=== PATIENT | male | born 1990 | race Caucasian/White ===

== ENCOUNTER 2018-07-04 15:39 | Emergency (ER) | payer OTHER ==
[~2018-07-04] VITALS: Ht 177.8 cm; Wt 72.6 kg
== END 2018-07-04 18:08 | disposition home or self-care (01) ==
LOC: ER 15:39
DX: S61.211A Laceration without foreign body of left index finger without damage to nail, initial encounter (principal); S61.213A Laceration without foreign body of left middle finger without damage to nail, initial encounter; W45.8XXA Other foreign body or object entering through skin, initial encounter; Y93.89 Activity, other specified; Y92.69 Other specified industrial and construction area as the place of occurrence of the external cause; Y99.8 Other external cause status

== ENCOUNTER 2018-07-14 14:49 | Emergency (ER) | payer OTHER ==
[~2018-07-14] VITALS: Ht 177.8 cm; Wt 72.6 kg
== END 2018-07-14 17:31 | disposition home or self-care (01) ==
LOC: ER 14:49
DX: Z48.02 Encounter for removal of sutures (principal)